=== PATIENT | female | born 1960 | race Hispanic/Latino ===

== ENCOUNTER 2020-01-17 18:40 | Inpatient (IN) | payer BC ==
[~2020-01-17] VITALS: Ht 154.9 cm; Wt 64.0 kg
[2020-01-17 19:20] LABS: BASOPHILS % (AUTO) 0.4 % (0.0-5.0); HEMATOCRIT 35.9 % (36-48); LYMPHOCYTES % (AUTO) 31.1 % (21.0-51.0); MEAN CORPUSCULAR HEMOGLOBIN 30.3 pg (27.0-33.0); MEAN CORPUSCULAR HGB CONC 33.7 g/dL (32.0-36.0); MONOCYTES % (AUTO) 8.4 % (3.0-13.0); NEUTROPHILS % (AUTO) 57.8 % (40.0-77.0); PLATELET COUNT (AUTO) 256 K/uL (130-400); RED BLOOD CELL COUNT(AUTO) 3.99 MIL/uL (4.00-5.50); RED CELL DISTRIBUTION WIDTH 13.7 % (11.0-15.5); WHITE BLOOD COUNT (AUTO) 9.5 K/uL (4.8-10.8)
[2020-01-17 19:42] LABS: CREATININE 0.9 mg/dL (0.5-1.5); POTASSIUM 3.7 mmol/L (3.5-5.1)
[2020-01-17 19:46] LABS: ALBUMIN 3.5 g/dL (3.5-5.0); BILIRUBIN,TOTAL 0.2 mg/dL (0.2-1.0); TOTAL PROTEIN, SERUM 7.2 g/dL (6.0-8.3)
[2020-01-17 19:56] LABS: INR 0.92 (0.85-1.15); PARTIAL THROMBOPLASTIN TIME 23.8 SEC (26.3-35.5)
[2020-01-17] MEDS ORDERED: ACETAMINOPHEN 325 MG TAB PO PRN (21:00)
[2020-01-17] MEDS ORDERED: ONDANSETRON HCL 4 MG/2 ML VIAL IV PRN (21:00)
[2020-01-17] MEDS ORDERED: DIAZEPAM 5 MG/ML 2 ML SYG ONE (21:01)
[2020-01-17 21:52] LABS: APPEARANCE,URINE Clear (CLEAR); BILIRUBIN,URINE Negative (NEGATIVE); COLOR,URINE Yellow (YELLOW); GLUCOSE, URINE (UA) Negative (NEGATIVE); KETONES,URINE Trace mg/dL (NEGATIVE); LEUKOCYTE ESTERASE ,URINE Small (NEGATIVE); NITRATE,URINE Negative (NEGATIVE); OCCULT BLOOD,URINE Negative (NEGATIVE); PH,URINE 7.5 (5.0-8.0); PROTEIN,URINE Negative (NEGATIVE)
[2020-01-17 21:58] LABS: BACTERIA,URINE Few /HPF (None Seen); RBC,URINE 0-1 /HPF (0-1)
[2020-01-17 21:59] LABS: SQUAMOUS EPITHELIAL CELL,UR Few /HPF (0-2)
[2020-01-18] VITALS (23 sets, daily range): BP systolic 83–116; BP diastolic 42–70
[2020-01-18] MEDS: MORPHINE SULFATE 2 MG/ML 1ML SYG IV PRN (01:37)
[2020-01-18] MEDS: CYCLOBENZAPRINE HCL 10 MG TABLET PO PRN ×2 (01:38→20:56)
--- NOTE | 2020-01-18 06:00 | NUR ---
RENE BLACKMAN VISITED WITH PATIENT. POC DISCUSSED, NEW ORDERS RECEIVED AND CARRIED OUT. PATIENT AWARE. NO QUESTIONS OR CONCERNS VOICED AT THIS TIME. PATIENT MEDICATED PER ELENI FOR COMPLAINTS OF PAIN VOICED. REPOSITIONED FOR COMFORT. CALL LIGHT WITHIN REACH. WILL CONTINUE TO BE OBSERVED. Addendum: 01/18/20 at 0711 by THAI MEDINA RN RN Amended: Links added.
[2020-01-18 06:20] LABS: BASOPHILS % (AUTO) 0.2 % (0.0-5.0); HEMATOCRIT 30.3 % (36-48); LYMPHOCYTES % (AUTO) 12.3 % (21.0-51.0); MEAN CORPUSCULAR HEMOGLOBIN 30.7 pg (27.0-33.0); MEAN CORPUSCULAR VOLUME 90.4 fL (79-99); MONOCYTES % (AUTO) 6.9 % (3.0-13.0); NEUTROPHILS % (AUTO) 80.1 % (40.0-77.0); PLATELET COUNT (AUTO) 202 K/uL (130-400); RED BLOOD CELL COUNT(AUTO) 3.35 MIL/uL (4.00-5.50); RED CELL DISTRIBUTION WIDTH 13.8 % (11.0-15.5); WHITE BLOOD COUNT (AUTO) 10.7 K/uL (4.8-10.8)
[2020-01-18] MEDS: HYDROMORPHONE 1 MG/1 ML AMP IV PRN ×2 (06:25→12:33)
[2020-01-18 06:27] LABS: CREATININE 0.8 mg/dL (0.5-1.5); POTASSIUM 4.1 mmol/L (3.5-5.1)
[2020-01-18] MEDS ORDERED: MONT10TA21 PO (06:32)
[2020-01-18] MEDS ORDERED: FLUT1DIS3 IH (06:32)
[2020-01-18] MEDS ORDERED: ALBUTEROL INHALER 90MCG/INH IH PRN (07:00)
[2020-01-18] MEDS: DOCUSATE SODIUM 100 MG CAP PO SCH ×2 (09:00→20:56)
[2020-01-18] MEDS: FAMOTIDINE/PF 20 MG/2 ML VIAL IV SCH ×2 (09:32→20:56)
[2020-01-18] MEDS: SODIUM CHLORIDE 0.9% 1000ML 1,000 ML IV SCH ×3 (09:36→20:20)
--- NOTE | 2020-01-18 11:07 | NUR ---
CHART CHECK COMPLETED. Pt IS A 59 Y.O. FEMALE ADMITTED SECONDARY TO LEFT INTERTROCHANTERIC FEMUR FRACTURE. Pt HAS A PAST MEDICAL HISTORY SIGNIFICANT FOR ASTHMA. Pt CURRENTLY NPO SECONDARY TO POSSIBLE PROCEDURE. SKILLED SPEECH THERAPY IS NOT WARRANTED AT THIS TIME. Addendum: 01/18/20 at 1116 by CARLY SALAZAR, SPT ST Amended: Links added.
--- NOTE | 2020-01-18 13:00 | NUR ---
IA- SPOKE TO SPOUSE FOR DC PLANNING STATES PATIENT IS ACTIVE, INDPENDENT, DRIVES, NO DME, HOME SAFE & ACCESSIBLE, , VERBAL VINCE FOR DME AND HOME HEALTH IN NETWORK THAT DR. ANGELES WILL AUTH; WILL FOLLOW UP IN AM WITH REFERRAL Addendum: 01/19/20 at 1811 by KAYE EMERY RN CM Amended: Links added.
[2020-01-18] MEDS ORDERED: CEFAZOLIN SODIUM 1 GM VIAL ONE (15:23)
[2020-01-18] MEDS ORDERED: SUCCINYLCHOLINE CHLORIDE 20 MG/ML 10 ML VIAL ONE (15:46)
[2020-01-18] MEDS ORDERED: LIDOCAINE PF 2% 5ML ABBOJECT ONE (15:46)
[2020-01-18] MEDS ORDERED: MIDAZOLAM HCL 1 MG/ML 2ML VIAL ONE (15:48)
[2020-01-18] MEDS ORDERED: ROCURONIUM 10MG/1ML SYR 10 MG/ML ML ONE (15:48)
[2020-01-18] MEDS ORDERED: DEXAMETHASONE SOD PHOSPHATE 10MG/ML 1ML VIAL ONE (15:48)
[2020-01-18] MEDS ORDERED: ONDANSETRON HCL 4 MG/2 ML VIAL ONE (15:48)
[2020-01-18] MEDS ORDERED: GLYCOPYRROLATE 1 MG/5 ML SYRINGE ONE (15:48)
[2020-01-18] MEDS ORDERED: PROPOFOL 10 MG/ML 20ML VIAL IV ONE (15:48)
[2020-01-18] MEDS ORDERED: NEOSTIGMINE 5MG/5ML SYR IV ONE (15:48)
[2020-01-18] MEDS ORDERED: FENTANYL CITRATE PF 50 MCG/1 ML 2ML VIAL ONE (15:49)
[2020-01-18] MEDS ORDERED: ESMOLOL HCL 10 MG/ML 10 ML VIAL ONE (16:02)
[2020-01-18] MEDS ORDERED: KETOROLAC TROMETHAMINE 30MG/ML ONE (17:37)
[2020-01-18] MEDS: MONTELUKAST SODIUM 10 MG TAB PO SCH (20:56)
[2020-01-19 00:18] VITALS: BP 102/66
[2020-01-19 04:16] LABS: HEMATOCRIT 27.2 % (36-48); LYMPHOCYTES % (AUTO) 5.2 % (21.0-51.0); MEAN CORPUSCULAR HEMOGLOBIN 30.2 pg (27.0-33.0); MEAN CORPUSCULAR HGB CONC 32.7 g/dL (32.0-36.0); MEAN CORPUSCULAR VOLUME 92.2 fL (79-99); MONOCYTES % (AUTO) 3.8 % (3.0-13.0); NEUTROPHILS % (AUTO) 90.7 % (40.0-77.0); PLATELET COUNT (AUTO) 192 K/uL (130-400); RED BLOOD CELL COUNT(AUTO) 2.95 MIL/uL (4.00-5.50); RED CELL DISTRIBUTION WIDTH 13.9 % (11.0-15.5); WHITE BLOOD COUNT (AUTO) 11.5 K/uL (4.8-10.8)
[2020-01-19 04:25] LABS: CREATININE 0.7 mg/dL (0.5-1.5); POTASSIUM 4.2 mmol/L (3.5-5.1)
[2020-01-19 04:28] VITALS: BP 103/59
[2020-01-19 08:29] VITALS: BP 91/57
[2020-01-19] MEDS: ENOXAPARIN SODIUM 40 MG/0.4 ML SYRINGE SQ SCH (10:53)
[2020-01-19] MEDS: CYCLOBENZAPRINE HCL 10 MG TABLET PO PRN (10:54)
[2020-01-19] MEDS: POLYETHYLENE GLYCOL 3350 17 GM POWD.PACK PO PRN (10:54)
[2020-01-19] MEDS: HYDROCODONE/ACETAMINOPHEN 5/325 MG TAB PO PRN (10:56)
[2020-01-19] MEDS: DOCUSATE SODIUM 100 MG CAP PO SCH ×2 (10:56→21:48)
[2020-01-19] MEDS: FAMOTIDINE/PF 20 MG/2 ML VIAL IV SCH ×2 (10:56→21:48)
[2020-01-19] MEDS: SODIUM CHLORIDE 0.9% 1000ML 1,000 ML IV SCH ×2 (10:58→23:00)
[2020-01-19] MEDS: ADVAIR 250-50 DISKUS IH SCH ×2 (10:58→21:45)
[2020-01-19 11:34] VITALS: BP 97/54
[2020-01-19] MEDS: ACETAMINOPHEN 325 MG TAB PO PRN (16:09)
[2020-01-19 16:55] VITALS: BP 90/53
--- NOTE | 2020-01-19 18:12 | NUR ---
CALL TO [facility] OFFICE, RECEOMMENDATIONS RECD. REFERRAL SENT TO [facility], REC'D WORD BACK NOT IN NETWORK WITH [facility], [facility]1983, CALL TO [facility] OFFICE ANSWERING SERVICE, CALL TO [facility], REFERRAL TO [facility], REFERRAL FOR DME TO &, CONFIRMED DELIVERY OF DME,A ND ACCEPTANCE AT [facility] Addendum: 01/19/20 at 1815 by KAYE EMERY RN CM Amended: Links added.
--- NOTE | 2020-01-19 18:16 | NUR ---
SUYAPA BURROWS AND MICHAEL, NUMBERS IN CHART FOR STORMY Addendum: 01/19/20 at 1816 by KAYE EMERY RN CM Amended: Links added.
[2020-01-19 20:20] VITALS: BP 94/55
[2020-01-19] MEDS: MONTELUKAST SODIUM 10 MG TAB PO SCH (21:48)
[2020-01-19] MEDS: MORPHINE SULFATE 2 MG/ML 1ML SYG IV PRN (21:48)
[2020-01-20] VITALS (7 sets, daily range): BP systolic 89–134; BP diastolic 50–78
[2020-01-20] MEDS: HYDROCODONE/ACETAMINOPHEN 5/325 MG TAB PO PRN ×3 (03:02→19:02)
[2020-01-20 05:17] LABS: BASOPHILS % (AUTO) 0.3 % (0.0-5.0); EOSINOPHILS % (AUTO) 0.1 % (0.0-8.0); HEMATOCRIT 22.5 % (36-48); MEAN CORPUSCULAR HEMOGLOBIN 30.5 pg (27.0-33.0); MEAN CORPUSCULAR HGB CONC 33.3 g/dL (32.0-36.0); MEAN CORPUSCULAR VOLUME 91.5 fL (79-99); MONOCYTES % (AUTO) 9.5 % (3.0-13.0); NEUTROPHILS % (AUTO) 65.7 % (40.0-77.0); PLATELET COUNT (AUTO) 169 K/uL (130-400); RED BLOOD CELL COUNT(AUTO) 2.46 MIL/uL (4.00-5.50); RED CELL DISTRIBUTION WIDTH 13.9 % (11.0-15.5); WHITE BLOOD COUNT (AUTO) 7.6 K/uL (4.8-10.8)
[2020-01-20 05:36] LABS: CREATININE 0.7 mg/dL (0.5-1.5); POTASSIUM 3.8 mmol/L (3.5-5.1)
--- NOTE | 2020-01-20 07:30 | NUR ---
i informed flight test data acquisition technician DAISY Gomez of H&H of .5.5; he asked if pt was asymptomatic and i stated so far yes. will cont to monitor.
[2020-01-20] MEDS ORDERED: ACET1TAB25 PO (08:31)
[2020-01-20] MEDS ORDERED: APIX2.5T PO (08:31)
[2020-01-20] MEDS: CYCLOBENZAPRINE HCL 10 MG TABLET PO PRN (08:48)
[2020-01-20] MEDS: FAMOTIDINE/PF 20 MG/2 ML VIAL IV SCH ×2 (08:48→21:17)
[2020-01-20] MEDS: POLYETHYLENE GLYCOL 3350 17 GM POWD.PACK PO PRN (08:48)
[2020-01-20] MEDS: DOCUSATE SODIUM 100 MG CAP PO SCH ×2 (08:49→21:17)
[2020-01-20] MEDS: ENOXAPARIN SODIUM 40 MG/0.4 ML SYRINGE SQ SCH (08:51)
[2020-01-20] MEDS ORDERED: LACTULOSE 20 GM/30 ML UDCUP PO SCH (09:00)
--- NOTE | 2020-01-20 10:20 | NUR ---
pt was c/o feeling light headed, she was sitting in chair after walking with physical therapy, she had also received pain meds about an hour prior to that; her blood pressure was noted to be low at 65/40; we assisted pt back to bed and lowered her head and raised her feet and applied o2 2l nc and started giving her an iv fluid bolus; after a few minutes her blood pressure went up to 90/50 and her o2 sat 99-100%, she is aaox3; i called resource management planner DAISY Ortega and he stated to hold d/c today and continue her iv fluid at 75cc/hr and ordered to recheck H&H at 1100; i updated pt on holding d/c today to cont. to monitor and she stated understanding.
[2020-01-20 11:16] LABS: HEMATOCRIT 22.9 % (36-48)
[2020-01-20] MEDS: SODIUM CHLORIDE 0.9% 1000ML 1,000 ML IV SCH (12:20)
[2020-01-20 17:24] LABS: HEMATOCRIT 23.7 % (36-48)
[2020-01-20] MEDS: ACETAMINOPHEN 325 MG TAB PO PRN (17:47)
[2020-01-20] MEDS: MONTELUKAST SODIUM 10 MG TAB PO SCH (21:18)
[2020-01-20 23:15] LABS: HEMATOCRIT 21.6 % (36-48)
[2020-01-21 00:16] VITALS: BP 96/58
[2020-01-21] MEDS: SODIUM CHLORIDE 0.9% 1000ML 1,000 ML IV SCH (03:02)
[2020-01-21] MEDS: HYDROCODONE/ACETAMINOPHEN 5/325 MG TAB PO PRN ×3 (03:02→16:28)
[2020-01-21 04:12] LABS: BASOPHILS % (AUTO) 0.3 % (0.0-5.0); EOSINOPHILS % (AUTO) 0.8 % (0.0-8.0); HEMATOCRIT 21.5 % (36-48); LYMPHOCYTES % (AUTO) 37.6 % (21.0-51.0); MEAN CORPUSCULAR HEMOGLOBIN 30.3 pg (27.0-33.0); MEAN CORPUSCULAR VOLUME 91.9 fL (79-99); MONOCYTES % (AUTO) 9.1 % (3.0-13.0); PLATELET COUNT (AUTO) 198 K/uL (130-400); RED BLOOD CELL COUNT(AUTO) 2.34 MIL/uL (4.00-5.50); RED CELL DISTRIBUTION WIDTH 13.8 % (11.0-15.5); WHITE BLOOD COUNT (AUTO) 6.2 K/uL (4.8-10.8)
[2020-01-21 04:16] VITALS: BP 99/61
[2020-01-21 04:18] LABS: CREATININE 0.7 mg/dL (0.5-1.5); POTASSIUM 3.5 mmol/L (3.5-5.1)
[2020-01-21 08:09] VITALS: BP 93/49
[2020-01-21] MEDS: DOCUSATE SODIUM 100 MG CAP PO SCH (09:00)
[2020-01-21] MEDS: FAMOTIDINE/PF 20 MG/2 ML VIAL IV SCH (09:43)
[2020-01-21] MEDS: ENOXAPARIN SODIUM 40 MG/0.4 ML SYRINGE SQ SCH (09:44)
[2020-01-21] MEDS: CYCLOBENZAPRINE HCL 10 MG TABLET PO PRN (09:45)
[2020-01-21 10:00] LABS: HEMATOCRIT 25.5 % (36-48)
[2020-01-21 11:29] VITALS: BP 102/84
[2020-01-21 15:52] VITALS: BP 136/58
--- NOTE | 2020-01-21 17:38 | NUR ---
D/C PAPERWORK FAXED TO [facility] AND AIRPLANE DISPATCH CLERK NURSE GEOFF TOOK REPORT;
[2020-01-21] MEDS ORDERED: APIXABAN 2.5 MG TABLET PO ONE (17:50)
--- NOTE | 2020-01-21 17:55 | NUR ---
PT STATED UNDERSTANDING OF ALL D/C INSTUCTIONS ON AFTER CARE FOR HIP SURGERY AND USE OF PERSCRIPTION PAIN PILLS AND BLOOD THINNERS; I HAVE ALSO INSTRUCTED PT ON WEIGHT BEARING TOLERATED ACTIVITY WITH WALKER AT ALL TIMES AND TO CALL MD FOR ANY SIGNS OR SYMPTOMS OF INFECTION OR OTHER CONCERNS; PT STATED UNDERSTANDING OF ALL INSTRUCTIONS AND IV ACCESS HAS ALREADY BEEN REMOVED.
== END 2020-01-21 18:00 | disposition home health service (06) | DRG 481 ==
LOC: EDH 18:40 → EDHIP 20:58 → 3AH 22:03
PROVIDERS: ADMIT Internal Medicine; ATTEND Internal Medicine
PROC: 0QS736Z Reposition Left Upper Femur with Intramedullary Internal Fixation Device, Percutaneous Approach (ICD-10-PCS; principal; 2020-01-18 15:30)
PROC: 3E0T3BZ Introduction of Anesthetic Agent into Peripheral Nerves and Plexi, Percutaneous Approach (ICD-10-PCS; 2020-01-18 15:30)
DX: S72.142A Displaced intertrochanteric fracture of left femur, initial encounter for closed fracture (principal); D62 Acute posthemorrhagic anemia; J45.909 Unspecified asthma, uncomplicated; K57.30 Diverticulosis of large intestine without perforation or abscess without bleeding; K59.00 Constipation, unspecified; Z20.828 Contact with and (suspected) exposure to other viral communicable diseases; W01.0XXA Fall on same level from slipping, tripping and stumbling without subsequent striking against object, initial encounter; Y93.89 Activity, other specified; Y92.89 Other specified places as the place of occurrence of the external cause; Y99.8 Other external cause status; Z82.49 Family history of ischemic heart disease and other diseases of the circulatory system
CPT/HCPCS: 36415; 71045; 73503; 74176; 80048; 80053; 81001; 85014; 85018; 85025; 85610; 85730; 86850; 86900; 86901; 86922; 87426; 93005; 97039; G0378; J0330; J0690; J1100; J1170; J1650; J1885; J2001; J2250; J2405; J2704; J2710; J3010; J3360; J3490; J7030; J7120; U0003

== ENCOUNTER → 2023-10-26 | Outpatient (CLI) | payer OTHER ==
[~2023-10-26] MED LIST: ACET-2079 PO; APIX2.5T PO; FLUT1DIS3 IH; MONT-46 PO
== END | disposition home or self-care (01) ==
LOC: RAH 14:54
PROVIDERS: ATTEND Emergency Medicine
DX: Z13.6 Encounter for screening for cardiovascular disorders (principal)
CPT/HCPCS: 75571